=== PATIENT | female | born 1995 | race Two or more races ===

== ENCOUNTER 2019-01-05 02:18 | Emergency (ER) | payer MEDICAID ==
[~2019-01-05] VITALS: Ht 157.5 cm; Wt 54.4 kg
--- NOTE | 2019-01-05 02:25 | Emergency Room Report ---
History of Present Illness General Chief Complaint: To Be Triaged Source: Patient, Friend, EMS Present Illness HPI Disclaimer: Please note that this report is being documented using DRAGON technology. This can lead to erroneous entry secondary to incorrect interpretation by the dictating instrument. HPI: 23-year-old female with no reported medical history presents for evaluation of lightheadedness and vomiting. The patient was at a Halloween green party drinking alcohol and her boyfriend who accompanies her to the emergency department today said that she kept passing out for brief seconds. He caught her and there is no head injury. Denies seizure-like activity. She was drinking alcohol throughout the evening and vomited several times. She reported feeling lightheaded. She is awake and alert answering questions appropriately. She was complaining of a headache but states she has been getting regular headaches for the past few months and is seeing a neurologist about it. Otherwise denies any double vision, neck or back pain, chest pain, shortness of breath, abdominal pain and she is no longer nauseated. Denies any pain in the extremities. PMH: Denies PSH: Denies Allergies: Denies Social Hx: Social alcohol use, occasional marijuana use, denies tobacco use Allergies: Coded Allergies: No Known Allergies (Unverified , 01/05/19) Patient History Last Menstrual Period: 01/03/19 Now: No Review of Systems All Other Systems: negative except mentioned in HPI Physical Exam Vital Signs Date Time Temp Pulse Resp B/P (MAP) Pulse Ox O2 Delivery O2 Flow Rate FiO2 01/05/19 02:13 98.4 115 18 133/79 (97) 96 Room Air General: Awake and alert, tearful and emotional HEENT: NC/AT. EOMI. Cardiovascular: Tachycardic. S1 and S2 normal. No murmur appreciated Resp: Normal work of breathing. No cough, wheezing or crackles appreciated Abdomen: Abdomen is soft, nondistended. Nontender Skin: Intact. No abrasions, laceration or rash over the exposed skin MSK: Normal tone and bulk. Moving all extremities. No obvious deformity. Neuro: Awake and alert. Mentating appropriately. Medical Decision Making Diagnostic Impression: Primary Impression: Acute alcoholic intoxication Additional Impression: Vomiting ER Course 23-year-old female presents for evaluation of vomiting and lightheadedness in the setting of alcohol intoxication. She arrives tachycardic though emotional and having recently vomited in the ambulance on the way over here. Will give oral Zofran and allowed to rehydrate orally. She is awake and alert answering questions appropriately, nonfocal neurologic exam and no reports or signs of trauma on physical examination. She will be monitored and if there is no significant change in her condition can be discharged home. Reevaluation Time: 06:15 Last Vital Signs Date Time Temp Pulse Resp B/P (MAP) Pulse Ox O2 Delivery O2 Flow Rate FiO2 01/05/19 02:13 98.4 115 18 133/79 (97) 96 Room Air Reevaluation Impression Patient had several more episodes of emesis while in the ER but then symptoms were controlled with oral Zofran. Resting comfortably at this time. Boyfriend wants to take the patient home to which she agrees. She will be prescribed additional Zofran and told to follow-up with her PMD. Discussed reasons to return to the emergency department. They understand and agree with treatment plan will be discharged home. Disposition: HOME, SELF-CARE Condition: Stable Scripts Ondansetron Odt* (ZOFRAN ODT*) 4 Mg Tab.rapdis 4 MG BC EVERY 6 HOURS PRN for Nausea & Vomiting, #10 TAB 0 Refills Prov: Antolin Ramirez MD 01/05/19 Antolin Ramirez MD Jan 05, 2019 02:25
[2019-01-05 02:38] VITALS: BP 133/79
--- NOTE | 2019-01-05 02:41 | NUR ---
ER Nurse Note: Pt brought in by ambulance 26 from green party c/o etoh and vomiting. Pt stated a&ox4, VSS. Significant other at bedside; stated she was drinking (unk amount) and started vomiting with gasping. Pt vomited at bedside; told pt not to put head back for aspiriation precautions. Will continue to monitor.
--- NOTE | 2019-01-05 03:53 | NUR ---
ER Nurse Note: Pt asleep, VSS. Pt no longer vomiting. Pt no signs of distress. Pt needs to sober up. Will continue to montior.
[2019-01-05] MEDS ORDERED: ONDANSETRON ODT4 MG BC (05:07)
[2019-01-05 06:30] VITALS: BP 126/74
--- NOTE | 2019-01-05 06:32 | NUR ---
ER Nurse Note: Pt seen, treated, medically cleared for discharge by ERMD. Discharge instuctions and prescriptions given with repeat verbalization by pt. Emphasized to follow up with primay care provider and abstain from alcohol. All orders completed per ERMD orders. Pt a&ox4, VSS, no signs of distress; pt ambulatory with steady gait, not actively vomiting. ID band removed. All questions answered per pt's questions. Pt left with all belongings, left with own transportation.
== END 2019-01-05 06:30 | disposition home or self-care (01) ==
LOC: EDBD 02:18 → EMR 02:51
DX: F10.129 Alcohol abuse with intoxication, unspecified (principal); R11.10 Vomiting, unspecified; R00.0 Tachycardia, unspecified
CPT/HCPCS: 99282